=== PATIENT | male | born 1980 | race Caucasian/White ===

== ENCOUNTER → 2021-01-26 09:11 | Outpatient (CLI) | payer OTHER ==
[2021-01-26 09:57] LABS: AMYLASE - SERUM 67 U/L (25-115); LIPASE 127 U/L (73-393)
== END | disposition home or self-care (01) ==
LOC: D.LAB 09:11
PROVIDERS: ATTEND Internal Medicine Gastroenterology
DX: R10.12 Left upper quadrant pain (principal)